=== PATIENT | female | born 1990 | race Caucasian/White ===

== ENCOUNTER 2023-05-04 03:06 | Emergency (ER) | payer OTHER, SELFPAY ==
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
[2023-05-04 03:16] VITALS: BP 121/79; PULSE 118; RESP 24; TEMP 36.3; O2SAT 98; BMI 32.1
[2023-05-04 06:03] VITALS: BP 109/59; PULSE 86; RESP 18; TEMP 36.7; O2SAT 97
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
[2023-05-04] MEDS: Ibuprofen 600 MG TABLET PO (08:34)
--- NOTE | 2023-05-04 09:11 | PC.NURSE ---
pt a+o x3, she reports 7/10 headache, po pain med given. she denies dizziness/lightheadedness. pt resting quietly at this time.
[2023-05-04 10:00] VITALS: BP 113/85; PULSE 68; RESP 18; TEMP 36.9; O2SAT 97
--- NOTE | 2023-05-04 10:35 | PC.NURSE ---
pt cleared for discharge. discharge information reviewed with pt. pt ambulated to the waiting room. no complaints on discharge. vss
== END 2023-05-04 10:35 | disposition home or self-care (01) ==
PROVIDERS: Emergency Provider Emergency Medicine
DX: S52.125A Nondisplaced fracture of head of left radius, initial encounter for closed fracture (principal); S00.93XA Contusion of unspecified part of head, initial encounter; S10.91XA Abrasion of unspecified part of neck, initial encounter; R51.9 Headache, unspecified; M54.2 Cervicalgia; R68.84 Jaw pain; M25.522 Pain in left elbow; Y04.2XXA Assault by strike against or bumped into by another person, initial encounter; Y93.9 Activity, unspecified; Y92.9 Unspecified place or not applicable; Y99.8 Other external cause status
CPT/HCPCS: 29105; 70110; 70486; 73080; 99284; 99285